=== PATIENT | male | born 1950 | race Caucasian/White ===

== ENCOUNTER → 2022-03-04 | Outpatient (CLI) | payer MEDICARE, OTHER ==
[~2022-03-04] MED LIST: CELEBREX200 MG PO; LIPITOR TAB 2020 MG PO; LISINOPRIL40 MG PO; LORATADINE10 MG PO; NORVASC10 MG PO
== END ==
LOC: OPSV2 10:00 → EDSTATUS 10:00 → OPSV2 10:02
DX: Z01.818 Encounter for other preprocedural examination (principal); M17.12 Unilateral primary osteoarthritis, left knee; I44.4 Left anterior fascicular block; R94.31 Abnormal electrocardiogram [ECG] [EKG]; Z88.1 Allergy status to other antibiotic agents; M41.9 Scoliosis, unspecified
CPT/HCPCS: 71046; 93005

== ENCOUNTER → 2022-03-17 | Outpatient (CLI) | payer MEDICARE, OTHER ==
[~2022-03-17] MED LIST changes: +ROXICODONE5 MG AS
== END ==
LOC: LAB 11:03
PROVIDERS: Orthopaedic Surgery
DX: Z01.812 Encounter for preprocedural laboratory examination (principal); M17.12 Unilateral primary osteoarthritis, left knee
CPT/HCPCS: 36415; 80048; 86850; 86900; 86901

== ENCOUNTER 2022-03-18 06:03 | Day surgery (SDC) | payer MEDICARE, OTHER ==
[~2022-03-18] VITALS: Ht 172.7 cm; Wt 70.3 kg
[~2022-03-18 06:03] MED LIST changes: -ROXICODONE5 MG AS
[2022-03-18] MEDS ORDERED: ROXICODONE5 MG AS (12:10)
[2022-03-19 03:50] LABS: HEMOGLOBIN 10.7 gm/dl (14.0-17.5); RED BLOOD COUNT 3.43 M/UL (4.20-5.50); WHITE BLOOD COUNT 11.1 K/UL (4.5-11.0)
[2022-03-19] MEDS ORDERED: ASPIRIN EC81 MG PO (08:28)
== END 2022-03-19 12:40 | disposition home or self-care (01) ==
LOC: OR 06:03 → CCU 15:00 → OR 03-19 12:40
PROVIDERS: Internal Medicine
DX: M17.0 Bilateral primary osteoarthritis of knee (principal); M21.162 Varus deformity, not elsewhere classified, left knee; G89.29 Other chronic pain; I10 Essential (primary) hypertension; E78.5 Hyperlipidemia, unspecified; K59.00 Constipation, unspecified; R94.4 Abnormal results of kidney function studies; Z88.0 Allergy status to penicillin; Z79.899 Other long term (current) drug therapy
CPT/HCPCS: 36415; 73560; 80048; 85025; 97116; 97116-GP-CQ; 97161; 97166; 97530-GP-CQ; 97535; C1713; C1776; J0171; J0690; J0735; J1100; J1170; J1200; J1885; J2250; J2274; J2704; J2710; J2795; J3010; J3370; J3475

== ENCOUNTER 2022-03-27 13:52 | Emergency (ER) | payer MEDICARE, OTHER ==
[~2022-03-27 13:52] MED LIST changes: +ASPIRIN EC81 MG PO; +ROXICODONE5 MG AS
[2022-03-27 14:29] LABS: HEMOGLOBIN 10.9 gm/dl (14.0-17.5); RED BLOOD COUNT 3.56 M/UL (4.20-5.50); WHITE BLOOD COUNT 7.7 K/UL (4.5-11.0)
== END 2022-03-27 16:58 | disposition home or self-care (01) ==
LOC: ER1 13:52
DX: M96.840 Postprocedural hematoma of a musculoskeletal structure following a musculoskeletal system procedure (principal); I10 Essential (primary) hypertension; Z96.652 Presence of left artificial knee joint; Y92.009 Unspecified place in unspecified non-institutional (private) residence as the place of occurrence of the external cause
CPT/HCPCS: 73564; 80053; 85025; 85652; 86140; 99283

== ENCOUNTER → 2022-04-02 | Outpatient (CLI) | payer MEDICARE, OTHER | LOC: KOH-I 03-18 14:00 | DX: N28.1 Cyst of kidney, acquired (principal) | CPT/HCPCS: 76775 ==